=== PATIENT | female | born 1955 | race Caucasian/White ===

== ENCOUNTER 2021-07-04 08:01 | Emergency (ER) | payer MEDICARE, SELFPAY ==
[2021-07-04 08:20] VITALS: BP 149/80; PULSE 61; RESP 18; TEMP 36.6; O2SAT 94; BMI 21.4
--- NOTE | 2021-07-04 08:33 | XRR_ITS ---
PROCEDURE INFORMATION: Exam: XR Lumbosacral Spine Exam date and time: 07/04/2021 10:45 AM Age: 66 years old Clinical indication: Low back pain; Patient HX: 66-year-old female presents emergency room via EMS. She has been weak not eating or drinking. She states that about 2 weeks ago she was able to get up and around but since then she has progressively worsened the point where she just lays in bed and has not been out of bed for the last couple of weeks. TECHNIQUE: Imaging protocol: XR of the lumbosacral spine. Views: 2 or 3 views. COMPARISON: CR Lumbar Spine 2-3 views* [id number] 06/14/2018 10:22 AM FINDINGS: Bones/joints: Generalized osteopenia is seen. There is osteoarthritis with intervertebral disc space narrowing L4-L5 and L5-S1.. No acute fracture. Normal alignment. Soft tissues: The abdominal aorta is calcified without aneurysm XR/XR lumbar spine 2-3V* [id number] IMPRESSION: 1. Osteopenia and osteoarthritis. 2. No acute bony abnormalities.
--- NOTE | 2021-07-04 08:47 | ED_ITS ---
HPI - Weakness General: Chief complaint: Weakness Stated complaint: WEAKNESS, NOT EATING AND DRINKING Time Seen by Provider: 07/04/21 08:06 Source: patient Mode of arrival: EMS Limitations: no limitations History of Present Illness: 66-year-old female presents emergency room via EMS. She has been weak not eating or drinking. She states that about 2 weeks ago she was able to get up and around but since then she has progressively worsened the point where she just lays in bed and has not been out of bed for the last couple of weeks. She has significant lice in the scalp. She denies chest pain abdominal pain she denies fever sweats or chills. She does have a little slurring to her speech she states she had a stroke several years ago and has had a little difficulty with speech since then this is not new for her. She denies vomiting or diarrhea. She denies dysuria urgency or frequency. MD Complaint: generalized weakness Onset (ago): week(s) (1) Duration: constant Location: generalized Relieving factors: none Exacerbating factors: none Associated symptoms: Denies chest pain, chills, confusion, melena, decreased appetite, diaphoresis, dysuria, easy bruising, fever(s), headache(s), myalgias, nausea, rash, short of breath, syncope or vomiting Review of Systems Const: Denies: fever(s), chills or diaphoresis ENMT: Denies: throat pain, ear or mastoid pain, nasal discharge or nasal yaa estion Card: Denies: chest pain, palpitations, irregular heart rhythm, edema or syncope Resp: Denies: dyspnea, productive cough or non-productive cough GI: Denies: abdominal pain, nausea, vomiting or melena : Denies: flank pain, difficulty voiding, dysuria, urinary frequency or urinary urgency Musc: Denies: neck pain or back pain Skin/Breast: Denies: rash or pruritus Neuro: Denies: headache(s) or confusion Psych: Denies: anxiety or depression Gerry/Lymph: Denies: easy bruising PFSH ED PFSH: Medical History Memory loss or impairment Skin tear of right forearm without complication Surgical History History of hysterectomy Social History Smoking and tobacco status: current every day smoker Physical Exam Const: GENERAL APPEARANCE: cooperative and comfortable ORIENTATION/CONSCIOUSNESS: Yes awake, Yes oriented to person, Yes oriented to place and Yes oriented to time HENMT: COMMON NORMALS: normocephalic, atraumatic and hearing grossly normal bilaterally HEAD & SCALP: normocephalic and atraumatic OTHER: Lice in the scalp significant amount. Neck/C-Spine: COMMON NORMALS: no JVD Resp: COMMON NORMALS: normal respiratory effort, No retractions, No use of accessory muscles and clear to auscultation bilaterally AUSCULTATION: clear to auscultation bilaterally Cardio: COMMON NORMALS: no JVD, regular rate, regular rhythm and No murmurs present (Cardio) RATE: regular rate RHYTHM: regular rhythm GI: COMMON NORMALS: Soft to palpation and No hepatosplenomegaly present AUSCULTATION: Yes normoactive bowel sounds PALPATION: Yes Soft to palpation, No Tenderness to palpation present (GI), No Guarding due to palpation present (GI) and Yes No hepatosplenomegaly present Extremity: COMMON NORMALS: normal to inspection, capillary refill normal, no clubbing, cyanosis or edema, no calf tenderness and no pedal edema OTHER: Ataxia Neuro: SENSORIUM/ORIENTATION: Yes oriented to person, Yes oriented to place and Yes oriented to time Skin: COMMON NORMALS: no rashes or lesions noted GENERAL SKIN EXAM: no rashes or lesions noted Course Vital Signs: Vital signs: Vital Signs Temperature 97.9 F 07/04/21 08:20 Pulse Rate 67 07/04/21 15:14 Respiratory Rate 18 07/04/21 15:14 Blood Pressure 127/65 07/04/21 15:14 Pulse Oximetry 91 07/04/21 15:14 MDM - Weakness Medical Decision Making 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 We are making arrangements for her to be transferred to be evaluated by neurosurgery. Patient became impatient and demanded to leave. I tried to talk her out of it told her there was significant risk even up to and including because of the findings in the brain we will do potential occlusion of the fourth ventricle developing pressure inside the brain that would be severe she states she understands and does not wish to stay she called a family member to come and get her she is not suicidal homicidal I do not have anything to justify placing her on a 96-hour hold. Patient left AMA. She was encouraged to return at any time. I did tell her it was likely she would continue to worsen and would likely be very quick deterioration. Medical Records I reviewed the patient's medical records. Lab Data I reviewed the patient's lab results. : 07/04/21 08:29 07/04/21 08:29 Radiology Impressions Lumbar Spine X-Ray 07/04/21 08:33 IMPRESSION: 1. Osteopenia and osteoarthritis. 2. No acute bony abnormalities. Head CT 07/04/21 11:07 IMPRESSION: 1. Numerous hyperattenuating masses throughout the brain including the cerebellum and cerebrum. Differential includes metastatic disease such as melanoma, lymphoma, thyroid, breast, lung and renal. The increased attenuation m ay represent hemorrhage or increased cellular content. Less likely multiple brain abscesses. 2. Numerous lesions within the cerebellum with the largest measuring 2.6 cm obstructing the fourth ventricle. There is a significant amount of edema and numerous lesions in the cerebellum and the patient is at risk for obstructive hydrocephalus and herniation. At this time there is just very minimal dilatation of the ventricles. Notified Arjun Harris DO at 07/04/2021 11:47 AM. Laboratory Results WBC 7.6 10^3/uL (4.0-10.0) 07/04/21 08: RBC 4.76 10^6/uL (4.1-5.3) 07/04/21 08: Hgb 13.6 g/dL (11.5-15.3) 07/04/21 08: Hct 42.5 % (37.0-47.0) 07/04/21 08: MCV 89.3 fl (81-99) 07/04/21 08: MCH 28.6 pg (28.0-34.0) 07/04/21 08: MCHC 32.0 g/dL (30.0-36.0) 07/04/21 08: RDW 14.4 % (12.1-15.1) 07/04/21 08: Plt Count 328 10^3/cmm (130-400) 07/04/21 08: MPV 10.0 fL (7.4-10.4) 07/04/21 08: Neut % (Auto) 64.0 % 07/04/21 08: Lymph % (Auto) 22.9 % 07/04/21 08:29 [place] % (Auto) 6.4 % 07/04/21 08: Eos % (Auto) 5.7 % 07/04/21 08: Baso % (Auto) 0.7 % 07/04/21 08: Neut # (Auto) 4.87 10^3/uL (1.8-7.7) 07/04/21 08: Lymph # (Auto) 1.7 10^3/uL (0.8-4.8) 07/04/21 08: [place] # (Auto) 0.5 10^3/uL (0.2-0.9) 07/04/21 08: Eos # (Auto) 0.4 10^3/uL (0.0-0.8) 07/04/21 08: Baso # (Auto) 0.1 10^3/uL (0.0-0.1) 07/04/21 08: Nucleated RBC % (auto) 0 % 07/04/21 08: Nucleated RBCs # 0.0 /100WBC 07/04/21 08: Sodium 140 mmol/L (136-145) 07/04/21 08: Potassium 3.9 mmol/L (3.5-5.1) 07/04/21 08: Chloride 102 mmol/L (98-107) 07/04/21 08: Carbon Dioxide 26 mmol/L (22-29) 07/04/21 08: Anion Gap 15.9 (5-19) 07/04/21 08: BUN 15 mg/dL (8-23) 07/04/21 08: Creatinine 0.6 mg/dL (0.5-0.9) 07/04/21 08: GFR Calculation 99.4 mL/min (90-130) 07/04/21 08: Glucose 111 mg/dL (65-115) 07/04/21 08: Calculated Osmolality 292 mOsm/kg (285-295) 07/04/21 08: Calcium 8.6 mg/dL (8.5-10.5) 07/04/21 08: Total Bilirubin 0.3 mg/dL (0.15-1.2) 07/04/21 08: AST 11 U/L (0-32) 07/04/21 08:29 ALT 8 U/L (0-33) 07/04/21 08:29 Alkaline Phosphatase 126 IU/L (35-105) H 07/04/21 08:29 Creatine Kinase 37 U/L (26-192) 07/04/21 08: Total Protein 6.4 g/dL (6.6-8.7) L 07/04/21 08: Albumin 3.6 g/dL (3.5-5.2) 07/04/21 08: Globulin 2.8 g/dL (1.3-4.6) 07/04/21 08:29 Urine Color Yellow (Yellow) 07/04/21 10:30 Urine Appearance Cloudy (CLEAR) 07/04/21 10:30 Urine pH 7 (5-7) 07/04/21 10:30 Ur Specific [place] 1.010 (1.005-1.030) 07/04/21 10:30 Urine Protein Neg (Negative) 07/04/21 10:30 Urine Glucose (UA) Norm (Normal) 07/04/21 10:30 Urine Ketones Negative (Negative) 07/04/21 10:30 Urine Blood 2+ (Negative) H 07/04/21 10:30 Urine Nitrate Negative (Negative) 07/04/21 10:30 Urine Bilirubin Neg (Negative) 07/04/21 10:30 Urine Urobilinogen Neg mg/dL (Negative) 07/04/21 10:30 Ur Leukocyte Esterase 2+ (Negative) H 07/04/21 10:30 Urine RBC 5-10 /hpf (0-2) H 07/04/21 10:30 Urine WBC 25-40 /hpf (0-5) H 07/04/21 10:30 Ur Squamous Epith Cells 0-4 /hpf (0-5) H 07/04/21 10:30 Amorphous Sediment Not Reportable 07/04/21 10:30 Urine Bacteria 4+ /hpf (NONE) H 07/04/21 10:30 Discharge Plan Discharge Patient Disposition: Left Against Medical Advice Clinical Impression: Brain metastases Condition: Stable Prescriptions: No Action ibuprofen 400 mg tablet 500 mg PO BID 0RF Discharge Orders: Discharge ED (Routine); Ordered 07/04/21 Ordered By: Arjun Harris Referrals: TYRONE WHITAKER JR, MD [Primary Care Provider] - Discharge Diet: Usual diet Discharge Activity: Resume usual activity Activity Restrictions/Additional Instructions: Since she chose to leave without finishing recommended treatment you are putting your life at severe danger. This could result in . If you wish to have any further evaluation or treatment feel free to return at any time. Coding Level of Care Code ED Safety Manager for [place] Fwd Exam Comprehensive
[2021-07-04 08:49] LABS: Basophils # 0.1 10^3/uL (0.0-0.1); Basophils % 0.7 %; Eosinophils # 0.4 10^3/uL (0.0-0.8); Eosinophils % 5.7 %; Hematocrit 42.5 % (37.0-47.0); Hemoglobin 13.6 g/dL (11.5-15.3); Lymphocytes # 1.7 10^3/uL (0.8-4.8); Lymphocytes % 22.9 %; Mean Corpuscular Hemoglobin 28.6 pg (28.0-34.0); Mean Corpuscular Volume 89.3 fl (81-99); Monocytes # 0.5 10^3/uL (0.2-0.9); Monocytes % 6.4 %; Neutrophils # 4.87 10^3/uL (1.8-7.7); Nucleated Red Blood Cells % 0 %; Platelet Count 328 10^3/cmm (130-400); Red Blood Count 4.76 10^6/uL (4.1-5.3); Red Cell Distribution Width 14.4 % (12.1-15.1); White Blood Count 7.6 10^3/uL (4.0-10.0)
[2021-07-04] MEDS: lactated ringers 1,000 ML 999 ML IV (08:54)
[2021-07-04 09:07] LABS: Alanine Aminotransferase 8 U/L (0-33); Albumin Level 3.6 g/dL (3.5-5.2); Alkaline Phosphatase 126 IU/L (35-105); Anion Gap 15.9 (5-19); Aspartate Amino Transferase 11 U/L (0-32); Blood Urea Nitrogen 15 mg/dL (8-23); Calcium 8.6 mg/dL (8.5-10.5); Carbon Dioxide 26 mmol/L (22-29); Chloride 102 mmol/L (98-107); Creatine Phosphokinase 37 U/L (26-192); Globulin 2.8 g/dL (1.3-4.6); Glomerular Filtration Rate 99.4 mL/min (90-130); Glucose 111 mg/dL (65-115); Osmolality Calculated 292 mOsm/kg (285-295); Potassium 3.9 mmol/L (3.5-5.1); Sodium 140 mmol/L (136-145); Total Bilirubin 0.3 mg/dL (0.15-1.2); Total Protein 6.4 g/dL (6.6-8.7)
--- NOTE | 2021-07-04 11:07 | CT_ITS ---
WS: [id number] CT HEAD NONCONTRAST HISTORY: slurred speech TECHNIQUE: Contiguous axial imaging performed through the brain in 2.5 mm imaging. Bone and soft tiss ue windows. Sagittal and coronal reformats reviewed. All CT scans at [facility] use at least one of these dose optimization techniques: automated exposure control; mA and/or kV adjustment per pa tient size (includes targeted exams where dose is matched to clinical indication); or iterative recon struction. DLP: 707.2 mGy.cm COMPARISON: None available. Numerous hyperattenuating masses throughout the brain surrounded by these edema. Greater than 15 mass es throughout the brain ranging in size from a few millimeters to 26 mm. The largest lesion is center ed and obstructing the fourth ventricle. There are numerous bilateral cerebellar lesions with edema. There is bilateral cerebellar edema with effacement on the fourth ventricle and foramen of Harper. Ve ry mild dilatation of the temporal horns at this point. There are additional numerous scattered hyper attenuating lesions. Lesions involve the rich and white matter. Extensive edema surrounding the lesions within the brain. There is no midline shift. Ventricles: No intraventricular blood. There is very mild dilatation of the lateral ventricles and t hird ventricle. Paranasal sinuses: Mucous retention cyst in the RIGHT maxillary sinus. Mastoid air cells: Well pneumatized. Calvarium and scalp: Skull is intact with no soft tissue edema or swelling. Small soft tissue nodule over the LEFT temporal scalp may be a skin tag. Very nonspecific. CT/CT head wo con* [id number] IMPRESSION: 1. Numerous hyperattenuating masses throughout the brain including the cerebel lum and cerebrum. Differential includes metastatic disease such as melanoma, ly mphoma, thyroid, breast, lung and renal. The increased attenuation may represen t hemorrhage or increased cellular content. Less likely multiple brain abscesse s. 2. Numerous lesions within the cerebellum with the largest measuring 2.6 cm ob structing the fourth ventricle. There is a significant amount of edema and nume yoko lesions in the cerebellum and the patient is at risk for obstructive hydro cephalus and herniation. At this time there is just very minimal dilatation of the ventricles. Notified Arjun Harris DO at 07/04/2021 11:47 AM.
[2021-07-04 11:34] LABS: Add Urine Microscopic? YES; Bilirubin Urine Neg (Negative); Blood Urine 2+ (Negative); Glucose Urine UA Norm (Normal); Ketones Urine Negative (Negative); Leukocyte Esterase Urine 2+ (Negative); Nitrate Urine Negative (Negative); Protein Urine Neg (Negative); Urine Appearance Cloudy (CLEAR); Urine Color Yellow (Yellow); Urobilinogen Urine Neg (Negative); pH Urine 7 (5-7)
[2021-07-04 11:35] LABS: Add Urine Culture? Yes; Bacteria Urine 4+ /hpf; Squamous Epithelial Cell Urine 0-4 /hpf (0-5); WBC Urine 25-40 /hpf (0-5)
[2021-07-04] MEDS: cefTRIAXone 1,000 MG in sodium chloride 0.9% (plus) 50 ML 100 MG IV (12:21)
[2021-07-04] MEDS: sodium chlor 0.9% + KCl 20 mEq 20 MEQ/1,000 ML BAG 125 MEQ IV (13:00)
[2021-07-04] MEDS: ondansetron 2 mg/ML SDV 2 mL 4 MG IVP (13:38)
[2021-07-04 15:14] VITALS: BP 127/65; PULSE 67; RESP 18; O2SAT 91
== END 2021-07-04 18:04 | disposition left against medical advice (07) ==
PROVIDERS: Emergency Provider Family Medicine; PCP Internal Medicine Pulmonary Disease
DX: C80.1 Malignant (primary) neoplasm, unspecified (principal); C79.31 Secondary malignant neoplasm of brain; Z53.29 Procedure and treatment not carried out because of patient's decision for other reasons; F17.200 Nicotine dependence, unspecified, uncomplicated
CPT/HCPCS: 70450; 72100; 80053; 81001; 82550; 85025; 87077; 87086; 87186; 96365; 96366; 96367; 96375; 99284; J0696; J2405

== ENCOUNTER 2021-07-06 08:11 | Emergency (ER) | payer MEDICARE, SELFPAY ==
--- NOTE | 2021-07-06 08:14 | ED_ITS ---
HPI - Altered Mental Status General: Chief Complaint: General Medical Stated Complaint: AMS Time Seen by Provider: 07/06/21 08:13 History of Present Illness: Ms. Santacruz is a 66-year-old lady with history of tobaccoism who presents emerged department due to nausea and vomiting and inabil ity to ambulate. She was seen on 07/04 for similar and at that time had CT head imaging which was notable for multiple suspected cancerous lesions. Apparently at that time it was recommended that she transfer for further neurosurgical evaluation however she declined and left AMA. Since that time symptoms have persisted. She reports onset of inability to ambulate starting on the Thursday before . Onset of the symptoms was sudden. Course has persisted. Intensity of symptoms is severe. She has difficulty characterizing whether this is due to imbalance, weakness, or some other process. Additionally over the past 4 to 5 days she has had recurrent nausea and vomiting. She does not have significant abdominal pain associated with this. No changes in bowel movements. Symptoms are worse with eating however do not go away. Emesis is nonbloody and occurs at least 5 times per day. No other specific changes in health, exacerbating, or alleviating factors identified. Onset (ago): week(s) Severity: severe Consistency of symptoms: Constant Review of Systems General: Reports: 10 or more systems reviewed and unremarkable except in HPI and below PFSH ED PFSH: Medical History Memory loss or impairment Skin tear of right forearm without complication Surgical History History of hysterectomy Social History Smoking and tobacco status: current every day smoker Physical Exam Const: COMMON NORMALS: alert GENERAL APPEARANCE: cooperative, well developed and ill appearing (Somewhat) HENMT: COMMON NORMALS: normocephalic and atraumatic HEAD & SCALP: normocephalic and atraumatic THROAT: posterior oropharynx normal OTHER: What appears to be head lice present Eye: COMMON NORMALS: conjunctivae normal CONJUNCTIVA: Yes conjunctivae normal SCLERA: sclerae normal Neck/C-Spine: COMMON NORMALS: supple GENERAL: Yes trachea midline Resp: COMMON NORMALS: clear to auscultation bilaterally EFFORT & INSPECTION: Yes able to speak in complete sentences AUSCULTATION: clear to auscultation bilaterally Cardio: COMMON NORMALS: regular rate and regular rhythm RATE: regular rate RHYTHM: regular rhythm GI: COMMON NORMALS: Soft to palpation PALPATION: Yes Soft to palpation, Yes Tenderness to palpation present (GI), No Guarding due to palpation present (GI) and No Rigid due to palpation PERCUSSION: normal to percussion Extremity: GENERAL: Yes normal exam except as noted and No edema Neuro: COMMON NORMALS: moves all extremities SENSORIUM/ORIENTATION: Yes alert and No Orientation impaired GAIT: Yes Ataxic gait present Psych: COMMON NORMALS: mental status grossly normal and Normal thought process present THOUGHT PROCESS: Normal thought process present Course ED course: - Patient was seen and evaluated by me at bedside - Patient placed on cardiac monitors, IV access obtained - Initial evaluation notable for exam as above, significant ataxia noted but no other acute alteration mental status or focal neurologic exam findings identified. - Labs personally interpreted by me - Labs notable for no acute hematologic abnormality. Metabolic panel notable for likely mild dehydration. Urinalysis with mild ketones and blood, no evidence of acute urinary tract infection given nitrite negative and only 0-5 white blood cells and trace bacteria. - Imaging notable for progression of suspected oncologic process noted on head CT without hemorrhage or midline shift. 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 - Discussed with Dr. Lugo of the neurosurgery service in [facility], no beds available in [place], who accepted the patient as transfer - Patient was transferred from the emergency department without further deterioration or significant events. Note: Click bubbles or prepopulated gutierrez in note writing are used for assistance with data collection and billing and are inherently more limited than narrative and other text portions of this note. Please use narrative for additional clinical history and defer to narrative/free test for any case of contradictory information. If information appears in only free text or click bubble it should be considered present or absent as reported. Please contact note underwriter solicitation director for clarifications of clinical information or contradictory information. MDM is a brief summary, contradictory or erroneous seeming information should be clarified and full note should be reviewed. Vital Signs: Vital signs: Vital Signs Pulse Rate 80 07/06/21 13:38 Respiratory Rate 18 07/06/21 13:38 Blood Pressure 123/77 07/06/21 13:38 Pulse Oximetry 92 07/06/21 13:38 MDM - Altered Mental Status Medical Decision Making 66-year-old lady with recently found likely metastatic cancer to the brain with unknown primary returning to the emergency department after previously leaving [facility] with worsening symptoms. Also endorses nausea and vomiting. ED evaluation notable for worsening lesions. Transferred to [facility] for neurosurgical evaluation. Medical Records I reviewed the patient's medical records. Lab Data I reviewed the patient's lab results. : 07/06/21 08:25 07/06/21 08:25 Radiology Impressions Abdomen/Pelvis CT 07/06/21 08:23 IMPRESSION: 1. No bowel obstruction. 2. Diverticulosis without diverticulitis. 3. Normal appendix. COMMENTS: Consistent with the [employer]'s Incidental Findings Committee white paper (J Am Carmelina Radiol 2018): Any incidental renal lesion less than 1 cm or classified as too small to characterize, or any incidental cystic renal lesion characterized as simple-appearing, is likely benign. No follow-up imaging is recommended for these lesions per consensus recommendations based on imaging criteria. Head CT 07/06/21 08:23 IMPRESSION: 1. Interval worsening of intracranial metastatic disease. 2. No sign of intracranial hemorrhage. 3. 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 Laboratory Results WBC 8.1 10^3/uL (4.0-10.0) 07/06/21 08:25 RBC 4.85 10^6/uL (4.1-5.3) 07/06/21 08:25 Hgb 13.8 g/dL (11.5-15.3) 07/06/21 08:25 Hct 42.1 % (37.0-47.0) 07/06/21 08:25 MCV 86.8 fl (81-99) 07/06/21 08:25 MCH 28.5 pg (28.0-34.0) 07/06/21 08:25 MCHC 32.8 g/dL (30.0-36.0) 07/06/21 08:25 RDW 14.0 % (12.1-15.1) 07/06/21 08:25 Plt Count 317 10^3/cmm (130-400) 07/06/21 08:25 MPV 9.8 fL (7.4-10.4) 07/06/21 08:25 Neut % (Auto) 76.6 % 07/06/21 08:25 Lymph % (Auto) 13.8 % 07/06/21 08:25 [place] % (Auto) 6.3 % 07/06/21 08:25 Eos % (Auto) 2.2 % 07/06/21 08:25 Baso % (Auto) 0.6 % 07/06/21 08:25 Neut # (Auto) 6.16 10^3/uL (1.8-7.7) 07/06/21 08:25 Lymph # (Auto) 1.1 10^3/uL (0.8-4.8) 07/06/21 08:25 [place] # (Auto) 0.5 10^3/uL (0.2-0.9) 07/06/21 08:25 Eos # (Auto) 0.2 10^3/uL (0.0-0.8) 07/06/21 08:25 Baso # (Auto) 0.1 10^3/uL (0.0-0.1) 07/06/21 08:25 Nucleated RBC % (auto) 0 % 07/06/21 08:25 Nucleated RBCs # 0.0 /100WBC 07/06/21 08:25 Sodium 134 mmol/L (136-145) L 07/06/21 08:25 Potassium 3.9 mmol/L (3.5-5.1) 07/06/21 08:25 Chloride 96 mmol/L (98-107) L 07/06/21 08:25 Carbon Dioxide 23 mmol/L (22-29) 07/06/21 08:25 Anion Gap 18.9 (5-19) 07/06/21 08:25 BUN 11 mg/dL (8-23) 07/06/21 08:25 Creatinine 0.5 mg/dL (0.5-0.9) 07/06/21 08:25 GFR Calculation 122.7 mL/min (90-130) 07/06/21 08:25 Glucose 91 mg/dL (65-115) 07/06/21 08:25 Calculated Osmolality 277 mOsm/kg (285-295) L 07/06/21 08:25 Calcium 8.8 mg/dL (8.5-10.5) 07/06/21 08:25 Total Bilirubin 0.5 mg/dL (0.15-1.2) 07/06/21 08:25 AST 8 U/L (0-32) 07/06/21 08:25 ALT 6 U/L (0-33) 07/06/21 08:25 Alkaline Phosphatase 141 IU/L (35-105) H 07/06/21 08:25 Total Protein 6.8 g/dL (6.6-8.7) 07/06/21 08:25 Albumin 3.8 g/dL (3.5-5.2) 07/06/21 08:25 Globulin 3.0 g/dL (1.3-4.6) 07/06/21 08:25 Urine Color Yellow (Yellow) 07/06/21 11:27 Urine Appearance Clear (CLEAR) 07/06/21 11:27 Urine pH 6.5 (5-7) 07/06/21 11:27 Ur Specific [place] 1.015 (1.005-1.030) 07/06/21 11:27 Urine Protein Trace (Negative) 07/06/21 11:27 Urine Glucose (UA) Norm (Normal) 07/06/21 11:27 Urine Ketones 2+ (Negative) H 07/06/21 11:27 Urine Blood 3+ (Negative) H 07/06/21 11:27 Urine Nitrate Negative (Negative) 07/06/21 11:27 Urine Bilirubin Neg (Negative) 07/06/21 11:27 Urine Urobilinogen Norm mg/dL (Negative) 07/06/21 11:27 Ur Leukocyte Esterase Negative (Negative) 07/06/21 11:27 Urine RBC 5-10 /hpf (0-2) H 07/06/21 11:27 Urine WBC 5-10 /hpf (0-5) H 07/06/21 11:27 Ur Squamous Epith Cells 0-4 /hpf (0-5) H 07/06/21 11:27 Amorphous Sediment 2+ /hpf 07/06/21 11:27 Urine Bacteria Trace /hpf (NONE) 07/06/21 11:27 Discharge Plan Discharge Patient Disposition: Xfer Intermediate Care Fac Clinical Impression: Brain metastases, Ataxic gait, Nausea & vomiting, Dehydration Condition: Stable Prescriptions: No Action ibuprofen 400 mg tablet 500 mg PO BID 0RF Referrals: TYRONE WHITAKER JR, MD [Primary Care Provider] - Coding Level of Care Code ED Complex Director for Chg Fwd Exam Comprehensive
--- NOTE | 2021-07-06 08:23 | CTR_ITS ---
PROCEDURE INFORMATION: Exam: CT Abdomen And Pelvis With Contrast Exam date and time: 07/06/2021 9:41 AM Age: 66 years old Clinical indication: Nausea and vomiting TECHNIQUE: Imaging protocol: Computed tomography of the abdomen and pelvis with contrast. Radiation optimization: All CT scans at this facility use at least one of these dose optimization techniques: automated exposure control; mA and/or kV adjustment per patient size (includes targeted exams where dose is matched to clinical indication); or iterative reconstruction. Contrast material: OMNI 300; Contrast volume: 95 ml; Contrast route: INTRAVENOUS (IV); COMPARISON: CR XR lumbar spine 2-3V* [id number] 07/04/2021 10:45 AM RADIATION DOSE METRICS: Total DLP (mGy-cm): 1548.25 FINDINGS: Lungs: Nonspecific airspace disease in the posterior segment of the left lower lobe. Heart: Trace pericardial effusion. Diaphragm: Small sliding hiatal hernia. Liver: Multiple cysts in the liver. Gallbladder and bile ducts: No calcified gallstones, gallbladder wall thickening, or pericholecystic inflammation. No biliary ductal dilation. Pancreas: No pancreatic mass. No peripancreatic inflammation. No pancreatic ductal dilation. Spleen: The spleen is homogeneous and is not enlarged. Adrenal glands: No adrenal mass. Kidneys and ureters: No nephrolithiasis. No hydronephrosis. Dominant simple appearing left renal cysts measuring up to approximately 2 cm in size. Stomach and bowel: No bowel obstruction. There is diverticulosis, most prominently in the sigmoid colon, without evidence of diverticulitis. Appendix: The appendix has a normal caliber with no wall thickening. No periappendiceal inflammation. Intraperitoneal space: No ascites or pneumoperitoneum. Vasculature: No abdominal aortic aneurysm. Lymph nodes: No enlarged lymph nodes. Urinary bladder: No urinary bladder calculus or wall thickening. Reproductive: Prior hysterectomy. Bones/joints: Mild curvature of the lumbar spine convex to the left associated with multilevel disc degeneration and facet arthropathy. Schmorl's node formation most prominent at the T12 level. Soft tissues: No acute soft tissue abnormality. CT/CT abdomen pelvis w con* [id number] IMPRESSION: 1. No bowel obstruction. 2. Diverticulosis without diverticulitis. 3. Normal appendix. COMMENTS: Consistent with the [employer]'s Incidental Findings Committee white paper (J Am Carmelina Radiol 2018): Any incidental renal lesion less than 1 cm or classified as too small to characterize, or any incidental cystic renal lesion characterized as simple-appearing, is likely benign. No follow-up imaging is recommended for these lesions per consensus recommendations based on imaging criteria.
--- NOTE | 2021-07-06 08:23 | CTR_ITS ---
PROCEDURE INFORMATION: Exam: CT Head Without Contrast Exam date and time: 07/06/2021 9:38 AM Age: 66 years old Clinical indication: Altered mental status/memory loss; Additional info: Unable to ambulate, reeval suspected cancer for bleeding TECHNIQUE: Imaging protocol: Computed tomography of the head without contrast. Radiation optimization: All CT scans at this facility use at least one of these dose optimization techniques: automated exposure control; mA and/or kV adjustment per patient size (includes targeted exams where dose is matched to clinical indication); or iterative reconstruction. COMPARISON: CT head wo con* [id number] 07/04/2021 11:28 AM RADIATION DOSE METRICS: Total DLP (mGy-cm): 1141.54 FINDINGS: Brain: Multiple intraparenchymal mass lesions are redemonstrated in both cerebral hemispheres, the left cerebral peduncle, both cerebellar hemispheres and vermis. Most of these have a somewhat of a ring-like morphology. The larger lesions are associated with vasogenic edema. The pattern is consistent with metastatic disease. No associated hemorrhage. The number and size of the lesions has worsened in the interval. Cerebral ventricles: No change in the size of the ventricular system. Paranasal sinuses: Right maxillary sinus mucous retention cyst. Mastoid air cells: Minimal right mastoid air cell effusions. The left mastoid air cells are aerated. Dental: Bilateral maxillary periapical abscess formation. Bones/joints: Pre-existing focal lucencies in the calvarium bilaterally. Metastatic disease is in the differential diagnosis. Soft tissues: No acute soft tissue abnormality. CT/CT head wo con* [id number] IMPRESSION: 1. Interval worsening of intracranial metastatic disease. 2. No sign of intracranial hemorrhage. 3. 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
[2021-07-06 08:26] VITALS: BP 137/96; PULSE 71; RESP 18; O2SAT 93
--- NOTE | 2021-07-06 08:26 | ECG_ITS ---
[facility] Test Date: 2021-07-06 Pat Name: Mary Santacruz Department: Room: Gender: Female Personal Carer: : 1955 Requested By: Caleb Hernadez Order Number: [id number] Aleksandra MD: Jono Dailey M.D. Measurements Intervals [place] Rate: 69 P: 61 ME: 125 QRS: 79 QRSD: 92 T: 54 QT: 405 QTc: 436 Interpretive Statements SINUS RHYTHM LOW QRS VOLTAGE IN EXTREMITY LEADS [QRS DEFLECTION < 0.5 mV IN LIMB LEADS] MODERATE T-WAVE ABNORMALITY, CONSIDER ANTERIOR ISCHEMIA [-0.1+ mV T-WAVE IN V3/V4] No previous ECG available for comparison Electronically Signed On 07-07-2021 8:18:59 CDT by Jono Dailey M.D. [email or web address]
[2021-07-06 08:35] VITALS: BMI 20.3
[2021-07-06 08:35] LABS: Basophils # 0.1 10^3/uL (0.0-0.1); Basophils % 0.6 %; Eosinophils # 0.2 10^3/uL (0.0-0.8); Eosinophils % 2.2 %; Hematocrit 42.1 % (37.0-47.0); Hemoglobin 13.8 g/dL (11.5-15.3); Lymphocytes # 1.1 10^3/uL (0.8-4.8); Lymphocytes % 13.8 %; Mean Corpuscular HGB Conc 32.8 g/dL (30.0-36.0); Mean Corpuscular Hemoglobin 28.5 pg (28.0-34.0); Mean Corpuscular Volume 86.8 fl (81-99); Mean Platelet Volume 9.8 fL (7.4-10.4); Monocytes # 0.5 10^3/uL (0.2-0.9); Monocytes % 6.3 %; Neutrophils # 6.16 10^3/uL (1.8-7.7); Neutrophils % 76.6 %; Nucleated Red Blood Cells % 0 %; Platelet Count 317 10^3/cmm (130-400); Red Blood Count 4.85 10^6/uL (4.1-5.3); White Blood Count 8.1 10^3/uL (4.0-10.0)
[2021-07-06 08:43] VITALS: BP 187/113; PULSE 98; RESP 19; O2SAT 98
[2021-07-06] MEDS: ondansetron 2 mg/ML SDV 2 mL 4 MG IVP (09:11)
[2021-07-06 09:31] LABS: Alanine Aminotransferase 6 U/L (0-33); Albumin Level 3.8 g/dL (3.5-5.2); Alkaline Phosphatase 141 IU/L (35-105); Anion Gap 18.9 (5-19); Aspartate Amino Transferase 8 U/L (0-32); Blood Urea Nitrogen 11 mg/dL (8-23); Calcium 8.8 mg/dL (8.5-10.5); Carbon Dioxide 23 mmol/L (22-29); Chloride 96 mmol/L (98-107); Glomerular Filtration Rate 122.7 mL/min (90-130); Glucose 91 mg/dL (65-115); Osmolality Calculated 277 mOsm/kg (285-295); Potassium 3.9 mmol/L (3.5-5.1); Sodium 134 mmol/L (136-145); Total Bilirubin 0.5 mg/dL (0.15-1.2); Total Protein 6.8 g/dL (6.6-8.7)
[2021-07-06] MEDS: iohexol 300 mg/mL 100 mL Btl IV (09:45)
[2021-07-06 10:43] VITALS: BP 142/84; O2SAT 92
[2021-07-06 11:50] LABS: Add Urine Microscopic? YES; Bilirubin Urine Neg (Negative); Blood Urine 3+ (Negative); Glucose Urine UA Norm (Normal); Ketones Urine 2+ (Negative); Leukocyte Esterase Urine Negative (Negative); Nitrate Urine Negative (Negative); Protein Urine Trace (Negative); Specific Gravity, Urine 1.015 (1.005-1.030); Squamous Epithelial Cell Urine 0-4 /hpf (0-5); Urine Appearance Clear (CLEAR); Urine Color Yellow (Yellow); Urobilinogen Urine Norm (Negative); pH Urine 6.5 (5-7)
[2021-07-06 11:51] LABS: Add Urine Culture? No; Amorphous Sediment Urine 2+ /hpf; Bacteria Urine TRACE /hpf
[2021-07-06 12:17] VITALS: BP 120/70; PULSE 88; RESP 20; O2SAT 93
[2021-07-06] MEDS: cefTRIAXone 1,000 MG in sodium chloride 0.9% (plus) 50 ML 100 MG IV (12:17)
[2021-07-06 13:38] VITALS: BP 123/77; PULSE 80; RESP 18; O2SAT 92
== END 2021-07-06 13:41 | disposition intermediate care facility (04) ==
PROVIDERS: Emergency Provider Emergency Medicine; PCP Internal Medicine Pulmonary Disease
DX: C79.31 Secondary malignant neoplasm of brain (principal); F17.210 Nicotine dependence, cigarettes, uncomplicated; C80.1 Malignant (primary) neoplasm, unspecified; E86.0 Dehydration
CPT/HCPCS: 70450; 74177; 80053; 81001; 85025; 87040; 93005; 96365; 96375; 99284; J0696; J2405; Q9967